=== PATIENT | female | born 1960 ===

== ENCOUNTER 2021-06-29 17:32 | Emergency (ER) | payer BC ==
[~2021-06-29] VITALS: Ht 157.5 cm; Wt 90.7 kg
[2021-06-29] MEDS ORDERED: KAPSPARGO SPRI100 MG PO (17:51)
[2021-06-29] MEDS ORDERED: OMEPRAZOLE-BIC1 EAC1 PO (17:51)
== END 2021-06-29 20:25 | disposition home or self-care (01) ==
LOC: ER 17:32
DX: K64.9 Unspecified hemorrhoids (principal); R07.89 Other chest pain; I10 Essential (primary) hypertension; Z88.6 Allergy status to analgesic agent; Z88.5 Allergy status to narcotic agent